=== PATIENT | male | born 1980 | race Caucasian/White ===

== ENCOUNTER 2020-12-16 10:06 | Day surgery (SDC) | payer OTHER, SELFPAY ==
[2020-12-11 09:09] VITALS: BMI 27.3
--- NOTE | 2020-12-15 10:57 | P.CONAN_ITS ---
Documented by User: Macy Sam NP 12/15/20 10:59 HPI - Anesthesia Eval Consult details Narrative: 40yo M for Upper Endoscopy Methadone daily Followed by [facility] transplant clinic Cirrhosis with varices s/p banding 2017 Last EGD with MAC 03/2019 [facility] Past Medical History Medical History Cirrhosis Esophageal varices Hepatitis Hypothyroid Upper GI bleed Surgical History Surgical History H/O colonoscopy History of esophagogastroduodenoscopy (EGD) Hx of hand surgery Hx of knee surgery Social History Social History Patient Tobacco Use Status: Current someday Tobacco user Advance Directives Information Provided: Yes (informational brochure mailed) Advance Directives on File: No Meds Allergies Allergy/AdvReac Type Severity Reaction Status Date / Time Penicillins Allergy Unknown Unknown Verified 12/10/20 10:45 Home Medications Medication Instructions Recorded Confirmed Last Taken Type cholecalciferol (vitamin D3) 10 10 mcg PO DAILY 12/11/20 12/11/20 Unknown History mcg (400 unit) capsule (Vitamin D3) clonazepam 1 mg tablet 1 mg PO BID 12/11/20 12/11/20 Unknown History clonidine HCl 0.2 mg tablet 0.2 mg PO BEDTIME 12/11/20 12/11/20 Unknown History lactulose 10 gram oral packet 10 g PO DAILY 12/11/20 12/11/20 Unknown History levothyroxine 100 mcg tablet 100 mcg PO DAILY 12/11/20 12/11/20 Unknown History methadone 10 mg/mL injection 58 mg IM DAILY 12/11/20 12/11/20 Unknown History solution nadolol 20 mg tablet 20 mg PO DAILY 12/11/20 12/11/20 Unknown History omeprazole 20 mg delayed 20 mg PO DAILY 12/11/20 12/11/20 Unknown History release,disintegrating tablet Exam Exam Date and Time: December 15, 2020 1057 Height,Weight and Vital Signs: Height 5 ft 7 in Weight 79.379 kg Assessment and Plan Assessment Anesthesia Assessment: Chart Reviewed Documented by User: Anne-Marie Barnes MD 12/16/20 11:08 HPI - Anesthesia Eval Consult details Narrative: 40yo M for Upper Endoscopy Methadone daily. H/o opioid abuse Followed by [facility] transplant clinic Cirrhosis with varices s/p banding 2017 Last EGD with MAC 03/2019 [facility] Active Problems Active Problems: Cirrhosis Pancytopenia. Plt 61 Past Medical History Medical History Cirrhosis Esophageal varices Hepatitis Hypothyroid Upper GI bleed Family History Family history of problems with anesthesia: No Surgical History Surgical History H/O colonoscopy History of esophagogastroduodenoscopy (EGD) Hx of hand surgery Hx of knee surgery History of Problems with Anesthesia: No Social History Social History Patient Tobacco Use Status: Current someday Tobacco user Advance Directives Information Provided: Yes (informational brochure mailed) Advance Directives on File: No Meds Allergies Allergy/AdvReac Type Severity Reaction Status Date / Time Penicillins Allergy Unknown Unknown Verified 12/10/20 10:45 Home Medications Medication Instructions Recorded Confirmed Last Taken Type cholecalciferol (vitamin D3) 10 10 mcg PO DAILY 12/11/20 12/11/20 Unknown History mcg (400 unit) capsule (Vitamin D3) clonazepam 1 mg tablet 1 mg PO BID 12/11/20 12/11/20 Unknown History clonidine HCl 0.2 mg tablet 0.2 mg PO BEDTIME 12/11/20 12/11/20 Unknown History lactulose 10 gram oral packet 10 g PO DAILY 12/11/20 12/11/20 Unknown History levothyroxine 100 mcg tablet 100 mcg PO DAILY 12/11/20 12/11/20 Unknown History methadone 10 mg/mL injection 58 mg IM DAILY 12/11/20 12/11/20 Unknown History solution nadolol 20 mg tablet 20 mg PO DAILY 12/11/20 12/11/20 Unknown History omeprazole 20 mg delayed 20 mg PO DAILY 12/11/20 12/11/20 Unknown History release,disintegrating tablet Exam Height,Weight and Vital Signs: Height 5 ft 7 in Weight 79.379 kg Vital Signs Temp Pulse Resp BP Pulse Ox 12/16/20 10:52 97.1 F 62 14 93/48 L 98 Pertinent Lab Results Pertinent Lab Results: Lab Results 12/15/20 12/15/20 Range/Units 12:54 12:54 WBC 3.5 L (4.8-10.8) X10*3/uL RBC 4.07 L (4.60-5.80) X10*6/uL Hgb 11.1 L (14.0-18.0) g/dl Hct 34.5 L (42-52) % MCV 84.8 (80-98) fL MCH 27.3 (27.0-33.0) pg MCHC 32.2 (31.0-36.0) g/dl RDW 15.1 (11.0-16.0) % Plt Count 61 L (160-400) X10*3/uL MPV 12.2 (9.4-12.4) fL Immature Gran % (Auto) 0.3 (0.0-0.4) % Neut % (Auto) 63.8 (45-73) % Lymph % (Auto) 23.4 (20-40) % [place] % (Auto) 10.7 (2-11) % Eos % (Auto) 1.2 (0-4) % Baso % (Auto) 0.6 (0-2) % Lymph # (Auto) 0.8 L (1.2-4.9) X10*3/uL [place] # (Auto) 0.4 (0.1-1.2) X10*3/uL Eos # (Auto) 0.0 (0.0-0.4) X10*3/uL Baso # (Auto) 0.0 (0.0-0.2) X10*3/uL Abs Immat Gran (auto) 0.01 (0.00-0.03) X10*3/uL Absolute Neuts (auto) 2.2 (2.0-8.3) X10*3/uL Absolute Nucleated RBC 0.000 (0.0-0.012) X10*3/uL Nucleated RBC % (auto) 0.0 (0.0-0.2) /100WBC PT 12.9 (9.9-13.0) SEC INR 1.1 (0.9-1.1) Airway Mallampati Class: IV (Barely any mouth opening) TM Dist: >3cm Neck ROM: Full Loose/Missing/Broken Teeth: Yes (Poor) Heart: RRR Lungs: CTAB Assessment and Plan Assessment Anesthesia Assessment: Anesthesia Plan Discussed Final Anesthetic Review Family History of Problems with Anesthesia: No History of Problems with Anesthesia: No NPO: Yes ASA Class: III Final Preanesthetic Review: No Changes in Pt Med Stat, Meds/Allgs Chart Reviewed, Consent Obtained/Reviewed and Anes Risks/Benef Reviewed Patient Risk: Intermediate Procedure Risk: Low Assessment/Block/Sedation in SS: Assess/Block/Sedation-SS Anesthetic Plan Anesthetic Plan: MAC: Disposition: Standard PACU
[2020-12-15 12:56] LABS: MANUAL DIFF FLAG NO
[2020-12-15 13:31] LABS: Basophils Percent Auto 0.6 % (0-2); Eosinophils Percent Auto 1.2 % (0-4); Hematocrit 34.5 % (42-52); Hemoglobin 11.1 g/dl (14.0-18.0); Imm Gran Abs Auto 0.01 X10*3/uL (0.00-0.03); Imm Gran Pct Auto 0.3 % (0.0-0.4); Lymphocytes Absolute Auto 0.8 X10*3/uL (1.2-4.9); Lymphocytes Percent Auto 23.4 % (20-40); Mean Corpuscular HGB Conc 32.2 g/dl (31.0-36.0); Mean Corpuscular Hemoglobin 27.3 pg (27.0-33.0); Mean Corpuscular Volume 84.8 fL (80-98); Mean Platelet Volume 12.2 fL (9.4-12.4); Monocytes Absolute Auto 0.4 X10*3/uL (0.1-1.2); Monocytes Percent Auto 10.7 % (2-11); Neutrophils Absolute Auto 2.2 X10*3/uL (2.0-8.3); Neutrophils Percent Auto 63.8 % (45-73); Platelet Count 61 X10*3/uL (160-400); Red Blood Count 4.07 X10*6/uL (4.60-5.80); Red Cell Distribution Width 15.1 % (11.0-16.0); White Blood Count 3.5 X10*3/uL (4.8-10.8)
[2020-12-15 13:59] LABS: INTERNATIONAL NORM RATIO 1.1 (0.9-1.1); Prothrombin Time 12.9 SEC (9.9-13.0)
[2020-12-16 10:52] VITALS: BP 93/48; PULSE 62; RESP 14; TEMP 36.2; O2SAT 98; BMI 26.6
[2020-12-16] MEDS: Lactated Ringers 1,000 ML 100 ML IVCONT (10:54)
--- NOTE | 2020-12-16 11:08 | MHC.SHP ---
Pre-Procedural Eval Section A Date of Service: 12/16/20 The patient is an INPATIENT: No Changes since office visit: No Cold of Flu in the past 2 weeks, No New Medical Problems, No Changes in Medication and No Patient answered all questions The History & Physical has been completed within 30 days and I have reviewed it.: Yes Section B Chief Complaint: esophageal varices Allergies: Allergies Allergy/AdvReac Type Severity Reaction Status Date / Time Penicillins Allergy Unknown Unknown Verified 12/10/20 10:45 Plan I have reviewed the history and physical and performed a pertinent physical examination on my patient. No changes have occurred unless specified.
[2020-12-16 11:26] VITALS: BP 95/59; PULSE 59; RESP 18; TEMP 36.2; O2SAT 98
--- NOTE | 2020-12-16 11:34 | PM.OP ---
Brief Operative Note Date of Service: 12/16/20 Pre-op diagnosis: esophageal varices Post-op diagnosis: same Procedure: egd Surgeon: Ochoa Tamez Anesthesia: MAC Was an Country Singer used for this Procedure?: No Estimated blood loss (mL): 0 Pathology: none sent Condition: stable Disposition: PACU
[2020-12-16 11:41] VITALS: BP 91/59; PULSE 60; RESP 18; O2SAT 96
[2020-12-16 11:56] VITALS: BP 90/57; PULSE 64; RESP 18; TEMP 36.2; O2SAT 95
--- NOTE | 2020-12-16 17:59 | OP_ITS ---
SURGEON: Ochoa Tamez MD INDICATIONS: Esophageal varices and cirrhosis. PREOPERATIVE DIAGNOSIS: POSTOPERATIVE DIAGNOSIS: PROCEDURE PERFORMED: Upper endoscopy. ESTIMATED BLOOD LOSS: COMPLICATIONS: ANESTHESIA: ASSISTANTS: SPECIMENS: MEDICATIONS: Monitored anesthesia care. DESCRIPTION OF PROCEDURE: History and physical performed. The risks and benefits of the procedure were explained to the patient. Informed consent was obtained. The patient was placed in the left lateral decubitus position. The Olympus video gastroscope was introduced into the esophagus, stomach, and duodenum. Examination was performed and the scope was removed. He tolerated the procedure well and was taken to recovery area in stable condition. FINDINGS: Esophagus: There were 2 chains of grade 1 esophageal varices extending from the EG junction at 35 cm to about 25 cm. There was no stigmata of recent hemorrhage. There was some scarring from previous banding in the distal esophagus. Stomach: The stomach showed no evidence of masses, ulcers, or polyps. No gastric varices were seen on retroflexed examination. There was mild portal hypertensive gastropathy. Duodenum: The bulb and second portion were normal. IMPRESSION: 1. Portal hypertensive gastropathy. 2. Esophageal varices. RECOMMENDATIONS: 1. Continued followup for variceal surveillance. 2. Continue present medical regimen including omeprazole and Nadolol. MD RIC Jauregui/NIGELL / [id number]
== END 2020-12-16 12:35 | disposition home or self-care (01) ==
PROVIDERS: PCP Internal Medicine; Visit Provider Internal Medicine Gastroenterology
PROC: 0DJ08ZZ Inspection of Upper Intestinal Tract, Via Natural or Artificial Opening Endoscopic (ICD-10-PCS; CPT 43235; principal; 2020-12-16 11:00)
DX: I85.00 Esophageal varices without bleeding (principal); K74.69 Other cirrhosis of liver; K76.6 Portal hypertension; K31.89 Other diseases of stomach and duodenum; Z86.19 Personal history of other infectious and parasitic diseases; Z79.899 Other long term (current) drug therapy; Z79.891 Long term (current) use of opiate analgesic; F17.210 Nicotine dependence, cigarettes, uncomplicated
CPT/HCPCS: 43235; 36415; 85025; 85610

== ENCOUNTER 2022-09-08 17:54 | Emergency (ER) | payer OTHER, SELFPAY ==
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
[2022-09-08 17:58] VITALS: BP 136/88; PULSE 82; O2SAT 98
[2022-09-08 19:04] VITALS: BP 148/80; PULSE 69; RESP 18; TEMP 36.4; O2SAT 100; BMI 25.0
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
[2022-09-08] MEDS: Morphine Sulfate Immed Release 15 MG TABLET PO (21:16)
--- OUTSIDE RECORDS SUMMARY | 2022-09-08 21:29 | XMS_ITS ---
Author Name Ochoa Tamez Jr Address [address] [place] [address] Organization [facility] Address [address] [place] [address] Care Team Providers Care Sales Service Executive Name Role Phone Dashawn Ayala Ochoa Unavailable [phone] PROBLEMS Type Condition ICD9-CM Code JDT43-WM Code Onset Dates Condition Status SNOMED Code Problem Chronic hepatitis C without hepatic coma B18.2 Active 646028878 Problem Esophageal varices without bleeding, unspecified esophageal varices type I85.00 Active 68475426 Problem Esophageal varices I85.00 Active Problem Iron deficiency anemia, unspecified iron deficiency anemia type D50.9 Active 16885538 Problem Other cirrhosis of liver K74.69 Active 27802828 Problem Secondary esophageal varices with bleeding I85.11 Active 525323091 Problem Rectal bleeding K62.5 Active 72078910 ALLERGIES No Known Allergies ENCOUNTERS Encounter Location Date Diagnosis [facility] [address], [place] [phone] Nov, Esophageal varices I85.00 [facility] [address] [place] [address] Nov, [facility] [address] [place] [address] Nov, [facility] [address] [place] [address] Oct, Other cirrhosis of liver K74.69 [facility] [address] [place] [address] Oct, Esophageal varices without bleeding, unspecified esophageal varices type I85.00 and Other cirrhosis of liver K74.69 [facility] [address] [place] [address] May, [facility] [place] [address] [place] [id number] Mar, Esophageal varices I85.00 [facility] [address] [place] [address] Feb, [facility] [address] [place] [address] Feb, [facility] [address] [place] [address] Dec, Other cirrhosis of liver K74.69 and Esophageal varices without bleeding, unspecified esophageal varices type I85.00 [facility] [address] [place] [address] Sep, [facility] [address] [place] [address] Sep, [facility] [address] [place] [address] Mar, Rectal bleeding K62.5 [facility] [address] [place] [address] Feb, [facility] [address] [place] [id number] Oct, [facility] [address] [facility] [address] Sep, [facility] [address] [place] [id number] Sep, [facility] [address] [facility] [address] Jul, Other cirrhosis of liver K74.69 and Secondary esophageal varices with bleeding I85.11 [facility] [address] [place] [id number] Jul, [facility] [address] [place] [address] [place] [address] May, [facility] [address] [place] [id number] May, [facility] [address] [place] [address] Apr, [facility] [address] [place] [address] Apr, Secondary esophageal varices with bleeding I85.11 [facility] [address] [place] [address] Jan, Chronic hepatitis C without hepatic coma B18.2 and Iron deficiency anemia, unspecified iron deficiency anemia type D50.9 [facility] [address] [place] [address] Nov, [facility] [address] [place] [address] Sep, [facility] [address] [place] [address] Sep, [facility] [address] [place] [address] Jul, [facility] [address] [place] [address] Jul, Chronic hepatitis C without hepatic coma B18.2 [facility] [address] [place] [address] Jul, [facility] [address] [place] [address] Jul, [facility] [address] [place] [address] Jul, [facility] [address] [place] [address] Jul, Iron deficiency anemia, unspecified iron deficiency anemia type D50.9 and Chronic hepatitis C without hepatic coma B18.2 [facility] [address] [place] [id number] Apr, [facility] [address] [place] [address] Mar, Chronic viral hepatitis C B18.2 [facility] [address] [place] [address] Mar, [facility] [address] [place] [address] Mar, Iron deficiency anemia, unspecified iron deficiency anemia type D50.9 and Chronic hepatitis C without hepatic coma B18.2 [facility] [address] [place] [address] Mar, [facility] [address] [place] [address] Oct, Hepatitis C 070.70 [facility] [address] [place] [address] Aug, [facility] ER [address], [place] [phone] Nov, [facility] ER [address], [place] [phone] Jul, IMMUNIZATIONS Vaccine Route Administration Date Status Influenza Unknown Nov 11, 2020 Administered Influenza Unknown Nov 28, 2018 Administered SOCIAL HISTORY Qualifiers Date Current Smoker REASON FOR REFERRAL FUNCTIONAL STATUS PLAN OF CARE Activity Details VITAL SIGNS Weight 175 lbs 2020-11-24 Weight 201 lbs 2019-01-12 Weight 203 lbs 2017-08-05 Weight 215 lbs 2017-05-20 Weight 208 lbs 2017-01-28 Weight 220 lbs 2016-07-30 Weight 205 lbs 2016-03-31 Weight 179 lbs 2013-11-23 Height 67 in 2020-11-24 Height 67 in 2019-01-12 Height 67 in 2017-08-05 Height 67 in 2017-05-20 Height 67 in 2017-01-28 Height 67 in 2016-07-30 Height 67 in 2016-03-31 Height 67 in 2013-11-23 BMI 27.41 kg/m2 2020-11-24 BMI 31.48 kg/m2 2019-01-12 BMI 31.79 kg/m2 2017-08-05 BMI 33.67 kg/m2 2017-05-20 BMI 32.57 kg/m2 2017-01-28 BMI 34.45 kg/m2 2016-07-30 BMI 32.10 kg/m2 2016-03-31 BMI 28.03 kg/m2 2013-11-23 Heart Rate 64 /min 2017-01-28 Heart Rate 84 /min 2013-11-23 Temperature 97.3 degrees Fahrenheit Blood pressure systolic 000 mm Hg Blood pressure diastolic 00 mm Hg 2020-10 MEDICATIONS Medication Instructions Dosage Frequency Start Date End Date Duration Status Tylenol 325 MG Orally every 4 hrs/prn 1 tablet as needed Active Vitamin D2 10 MCG (400 UNIT) Orally once a week 1 tablet Active Polyethylene Glycol 3350 - Oral prn take 1 packet by mouth once daily Active cloNIDine HCl 0.2 MG Orally Once a day 1 tablet 24h 30 day(s) Active Nadolol 20 MG TAKE 1 TABLET BY MOUTH EVERY DAY 90 Active Methadone HCl 10 MG/ML Orally Once a day 58 ml as needed 24h Active Omeprazole 20 MG TAKE 1 CAPSULE BY MOUTH EVERY DAY 90 Active SUMAtriptan Succinate 100 MG Orally prn 1 dose at onset of headache in each nostril may repeat dose one time after 2 hours as needed Active LORazepam 2 MG Orally daily 1/2 in the am and 1 tablet in the pm 24h Active clonazePAM 1 MG Orally twice a day 1 tablet 12h Active Lactulose 10 GM Orally Once a day 1 packet 24h 30 day(s) Active Levothyroxine Sodium 100 MCG Orally Once a day 1 tablet in the morning on an empty stomach 24h Active PROCEDURES Procedure Date Ordered Result Body Site DOC MEDS VERIFIED W/PT OR RE Nov 24, 2020 [facility] GI ENDOSCOPY, DIAGNOSIS Dec 16, 2020 UPPR GI ENDOSCOPY, DIAGNOSIS Apr 06, 2019 DOC RSN FOR NOT SCREEN/REC F/U HBP Nov 24, 2020 Pt scrn tbco id as non user Nov 24, 2020 RESULTS Name Result Date Reference Range Complete Blood Count Auto Diff 2020-12-15 White Blood Count 3.5 4.8-10.8 Red Blood Count 4.07 4.60-5.80 Hemoglobin 11.1 14.0-18.0 Hematocrit 34.5 42-52 Mean Corpuscular Volume 84.8 80-9 8 Mean Corpuscular Hemoglobin 27.3 27.0-33.0 Mean Corpuscular HGB Conc 32.2 31 .0-36.0 Red Cell Distribution Width 15.1 11.0-16.0 Platelet Count 61 160-400 Mean Platelet Volume 12.2 9.4-12. 4 Neutrophils Percent Auto 63.8 45- 73 Imm Gran Pct Auto 0.3 0.0-0.4 Lymphocytes Percent Auto 23.4 20- 40 Monocytes Percent Auto 10.7 2-11 Eosinophils Percent Auto 1.2 0-4 Basophils Percent Auto 0.6 0-2 NRBC Pct Auto 0.0 0.0-0.2 Neutrophils Absolute Auto 2.2 2. 0-8.3 Imm Gran Abs Auto 0.01 0.00-0.03 Lymphocytes Absolute Auto 0.8 1. 2-4.9 Monocytes Absolute Auto 0.4 0.1- 1.2 Eosinophils Absolute Auto 0.0 0. 0-0.4 Basophils Absolute Auto 0.0 0.0- 0.2 NRBC Abs Auto 0.000 0.0-0.012 Prothrombin Time INR 2020-12-15 Prothrombin Time 12.9 9.9-13.0 INTERNATIONAL NORM RATIO 1.1 0.9 -1.1 CBC w/o DIFF 2019-04-06 WBC 4.3 4.8-10.8 RBC 4.36 4.60-5.80 HEMOGLOBIN 14.1 14.0-18.0 HEMATOCRIT 41.2 42-52 MCV 94.5 80-98 MCH 32.2 27.0-33.0 MCHC 34.1 31.0-36.0 PLATELET COUNT 60 160-400 RDW 13.2 11.0-16.0 CBC w DIFF 2018-05-09 WBC 4.6 4.8-10.8 ABSOLUTE NEUTROPHIL COUNT 2.2 2. 2-7.9 RBC 4.15 4.60-5.80 HEMOGLOBIN 12.4 14.0-18.0 HEMATOCRIT 37.0 42-52 MCV 89.1 80-98 MCH 30.0 27.0-33.0 MCHC 33.7 31.0-36.0 PLATELET COUNT 61 160-400 RDW 14.8 11.0-16.0 NEUTROPHILS 48.5 45-73 LYMPHOCYTES 36.6 20-40 MONOCYTES 11.6 2-11 EOSINOPHILS 1.9 0-4 BASOPHILS 1.4 0-2 CBC w/o DIFF 2017-09-27 WBC 4.4 4.8-10.8 RBC 4.24 4.60-5.80 HEMOGLOBIN 13.2 14.0-18.0 HEMATOCRIT 38.1 42-52 MCV 89.8 80-98 MCH 31.1 27.0-33.0 MCHC 34.7 31.0-36.0 PLATELET COUNT 78 160-400 RDW 14.0 11.0-16.0 LIVER PROFILE 2017-08-05 PROTEIN, TOTAL 7.4 6.5-8.0 ALBUMIN 3.9 3.5-5.0 BILIRUBIN, TOTAL 0.7 0.0-1.0 BILIRUBIN, DIRECT 0.3 0.0-0.5 ALK. PHOS. 155 39-117 GOT 41 5-37 GPT 13 0-40 IRON + IBC (FE) 2017-08-05 IRON 117 45-160 IBC 348 228-428 % SATURATION 34 20-50 FERRITIN 2017-08-05 FERRITIN 29 20-250 CBC w/o DIFF 2017-08-05 WBC 5.8 4.8-10.8 RBC 4.45 4.60-5.80 HEMOGLOBIN 13.7 14.0-18.0 HEMATOCRIT 38.9 42-52 MCV 87.6 80-98 MCH 30.8 27.0-33.0 MCHC 35.2 31.0-36.0 PLATELET COUNT 64 160-400 RDW 15.9 11.0-16.0 PROTHROMBIN TIME (PT, INR) 2017-08-05 INTERNATIONAL NORM. RATIO 1.1 SE E NOTE PROTHROMBIN TIME 13.0 10.2-12.9 LIVER PROFILE 2016-10-12 PROTEIN, TOTAL 7.6 6.5-8.0 ALBUMIN 3.8 3.5-5.0 BILIRUBIN, TOTAL 0.7 0.0-1.0 BILIRUBIN, DIRECT 1.1 0.0-0.5 ALK. PHOS. 126 39-117 GOT 54 5-37 GPT 16 0-40 CBC w/o DIFF 2016-10-12 WBC 6.0 4.8-10.8 RBC 4.32 4.60-5.80 HEMOGLOBIN 11.3 14.0-18.0 HEMATOCRIT 35.3 42-52 MCV 81.7 80-98 MCH 26.2 27.0-33.0 MCHC 32.0 31.0-36.0 PLATELET COUNT 80 160-400 RDW 20.5 11.0-16.0 HEPATITIS C VIRAL LOAD 2016-10-12 HEP C VIRAL LOAD <15 <15 HCV LOG PCR <1.18 <1.18 LIVER PROFILE 2016-08-30 PROTEIN, TOTAL 7.6 6.5-8.0 ALBUMIN 3.7 3.5-5.0 BILIRUBIN, TOTAL 0.9 0.0-1.0 BILIRUBIN, DIRECT 0.5 0.0-0.5 ALK. PHOS. 136 39-117 GOT 47 5-37 GPT 17 0-40 CBC w DIFF 2016-08-30 WBC 4.2 4.8-10.8 ABSOLUTE NEUTROPHIL COUNT 2.4 2. 2-7.9 RBC 4.31 4.60-5.80 HEMOGLOBIN 10.7 14.0-18.0 HEMATOCRIT 34.9 42-52 MCV 81.0 80-98 MCH 24.7 27.0-33.0 MCHC 30.5 31.0-36.0 PLATELET COUNT 75 160-400 RDW 16.5 11.0-16.0 NEUTROPHILS 57.2 45-73 LYMPHOCYTES 30.6 20-40 MONOCYTES 10.0 2-11 EOSINOPHILS 0.8 0-4 BASOPHILS 1.3 0-2 HEPATITIS C VIRAL LOAD 2016-08-30 HEP C VIRAL LOAD <15 <15 HCV LOG PCR <1.18 <1.18 ABD RETRO VICS DOPPLER 2016-08-17 GI BIOPSY 2016-05-21 G.I. BIOPSY CBC w/o DIFF 2016-05-21 WBC 6.6 4.8-10.8 RBC 4.46 4.60-5.80 HEMOGLOBIN 12.7 14.0-18.0 HEMATOCRIT 39.4 42-52 MCV 88.4 80-98 MCH 28.4 27.0-33.0 MCHC 32.2 31.0-36.0 PLATELET COUNT 90 160-400 RDW 15.5 11.0-16.0 LIVER PROFILE 2016-03-31 PROTEIN, TOTAL 7.6 6.5-8.0 ALBUMIN 4.1 3.5-5.0 BILIRUBIN, TOTAL 0.5 0.0-1.0 BILIRUBIN, DIRECT 0.3 0.0-0.5 ALK. PHOS. 148 39-117 GOT 129 5-37 GPT 74 0-40 CBC w DIFF 2016-03-31 WBC 4.3 4.8-10.8 ABSOLUTE NEUTROPHIL COUNT 2.5 2. 2-7.9 RBC 4.61 4.60-5.80 HEMOGLOBIN 12.9 14.0-18.0 HEMATOCRIT 39.1 42-52 MCV 84.8 80-98 MCH 28.0 27.0-33.0 MCHC 33.1 31.0-36.0 PLATELET COUNT 85 160-400 RDW 16.1 11.0-16.0 NEUTROPHILS 56.8 45-73 LYMPHOCYTES 28.3 20-40 MONOCYTES 12.1 2-11 EOSINOPHILS 1.1 0-4 BASOPHILS 1.8 0-2 PROTHROMBIN TIME (PT, INR) 2016-03-31 INTERNATIONAL NORM. RATIO 1.1 SE E NOTE PROTHROMBIN TIME 13.0 10.1-13.8 HEPATITIS C VIRAL LOAD 2016-03-31 HEP C VIRAL LOAD 51979 <15 HCV LOG PCR 4.65 <1.18 HCV LIVER FIBROSIS, FIBRO TEST 2016-03-31 FIBROSIS SCORE 0.56 () FIBROSIS STAGE F2 () FIBROSIS INTERPRETATION SEE NOTE () NECROINFLAMMAT ACTIVITY SCORE 0.46 () NECROINFLAMMAT ACTIVITY GRADE A1-A2 () NECROINFLAMMAT ACTIVITY INTERP SEE NOTE () RAGTY-0-[id number] 326 106-279 HAPTOGLOBIN 63 43-212 APOLIPOPROTEIN A1 117 94-176 TOTAL BILIRUBIN 0.4 0.2-1.2 GGT 75 3-90 ALT 61 9-46 REFERENCE ID [id number] () FOOTNOTE SEE NOTE () REASON FOR VISIT esophageal varices, Needs note to Methadone clinic, r/f request omeprazole, labs, Patient presents today for an upperendoscopy screening, r/f , esophageal varices, needs note, void, hepatitis C, cirrhosis, esophageal varices, Rx request, refill/Omeprazole, Needs refill, 6 month f/u, Looking for refill , iron def anemia, esophageal varices, upper endoscopy, esophageal varices, PATIENT PRESENTS TODAY FOR 6 month f/u Hep C, esophageal varices with bleeding, EGD with banding, esophageal varices, Needs letter, Patient presents today for a HFU, PATIENT PRESENTS TODAY FOR Hep C, Medication letter, Hep C, r/s, SVR form, Nadolol, iron def anemia, hepatitis C, Hep C, Hep C inquiry, Put on one year OV follow up, PATIENT PRESENTS TODAY FOR iron def anemia, hepatitis C, iron deficiency anemia, Marylu Mortensen, patient presents today for HEP C, 6 month f/u, Needed to cancel OV follow up,Hep C, Hep C, needed to reschedule Insurance Providers Health Insurance Type Health Plan Insurance Address Health Plan Insurance Phone Health Plan Insurance Name Health Plan Coverage Dates Member ID Patient Relationship to Subscriber Patient Address Patient Phone Patient Name Patient Date of Subscriber ID Subscriber Name Subscriber Date of Group No Exchange Group [facility] [address] [address] [facility] [id number] Exchange Group [facility] self ROSEY PRECIADO [id number] [facility] [address] [address] [facility] [id number] [facility] self ROSEY PRECIADO [id number]
[2022-09-08 23:02] VITALS: BP 116/79; PULSE 61; RESP 16; O2SAT 99
[2022-09-09] VITALS: BP 121/74; PULSE 61; RESP 16; TEMP 36.4; O2SAT 100
== END 2022-09-09 00:55 | disposition home or self-care (01) ==
PROVIDERS: Emergency Provider Emergency Medicine Emergency Medical Services
DX: S02.2XXA Fracture of nasal bones, initial encounter for closed fracture (principal); S00.83XA Contusion of other part of head, initial encounter; Y04.2XXA Assault by strike against or bumped into by another person, initial encounter; J01.00 Acute maxillary sinusitis, unspecified; Y93.89 Activity, other specified; Y92.511 Restaurant or cafe as the place of occurrence of the external cause; Y99.9 Unspecified external cause status; Z79.899 Other long term (current) drug therapy
CPT/HCPCS: 70150; 70450; 70486; 72125; 99284

== ENCOUNTER 2022-09-20 12:35 | Outpatient (REF) | payer OTHER, SELFPAY ==
[2022-09-20 13:10] LABS: Ammonia 61 umol/L (13-55)
[2022-09-20 13:52] LABS: Alanine Aminotransferase 36 U/L (0-40); Albumin Level 3.4 g/dL (3.5-5.0); Alkaline Phosphatase 91 U/L (39-117); Anion Gap 10 (12-20); Aspartate Amino Transferase 87 U/L (5-37); Bilirubin Direct 0.5 mg/dL (0.0-0.5); Blood Urea Nitrogen 11 mg/dL (9-16); Calcium 9.2 mg/dL (8.4-10.2); Carbon Dioxide 34 mmol/L (22-29); Chloride 99 mmol/L (96-108); Estimated Glomerular Filt Rate > 60; Glucose Random 118 mg/dL (60-115); Potassium 2.7 mmol/L (3.3-5.1); Sodium 140 mmol/L (135-145); Total Protein 6.3 g/dL (6.5-8.0)
[2022-09-20 14:18] LABS: Folate 7.2 ng/mL (> or = 4.0); Vitamin B12 1267 pg/mL (200-900)
[2022-09-21 06:00] LABS: HIV Num 1 1.06 S/CO (0.00-0.99)
[2022-09-21 09:09] LABS: HIV AB/AG Nonreactive (Nonreactive); HIV Num 2 0.08 S/CO; HIV Num 3 0.08 S/CO
[2022-09-21 21:28] LABS: Lyme Abs Screen <0.90 index
== END 2022-09-20 12:36 | disposition home or self-care (01) ==
LOC: HO.CT 12:35
PROVIDERS: Absent Provider Psychiatry & Neurology Neurology; Visit Provider Internal Medicine
DX: G93.40 Encephalopathy, unspecified (principal); K74.69 Other cirrhosis of liver; B18.2 Chronic viral hepatitis C
CPT/HCPCS: 36415; 80048; 80076; 82140; 82607; 82746; 86617; 86618; 87389

== ENCOUNTER 2022-10-12 09:10 | Outpatient (REF) | payer OTHER, SELFPAY ==
--- NOTE | ~2022-10-12 | CT_ITS ---
EXAMINATION: CT ABDOMEN AND PELVIS WITHOUT AND WITH CONTRAST CLINICAL INFORMATION: Liver cancer COMPARISON: Previous abdominal ultrasound April 2006 TECHNIQUE: Multidetector volumetric imaging was performed of the abdomen and pelvis before and after the IV administration of 85 mL of Omnipaque 300 intravenous contrast. Arterial and portal phase imaging of the liver was performed. Sagittal and coronal reformatted images were obtained on the technologist's workstation. This CT examination was performed using dose optimization techniques as appropriate, variously including the following: *Automated exposure control *Adjustment of mA and/or kV according to patient size (this includes techniques or standardized protocols for targeted exams where dose is matched to indication/reason for exam; i.e. extremities or head) *Use of iterative reconstruction technique DLP: 1007 mGy-cm FINDINGS: LUNG BASES: 5 mm nodular density in the medial segment of the right middle lobe, question representing atelectasis. The lung bases are otherwise clear. There is mild bilateral gynecomastia. LIVER, GALLBLADDER, AND BILIARY TREE: The liver is cirrhotic appearing. There is a 6 mm low-attenuation observation in the posterior segment of the right lobe of the liver. This is best appreciated axial image 33 series 5 on venous phase imaging. This cannot be a faint may be faintly appreciated on arterial phase imaging axial image 37 series 4. This is not appreciated on precontrast imaging. No other focal lesion is seen. This is difficult to characterize. There is trace history of liver cancer, this could represent a treated lesion. Correlation with clinical history recommended. No suspicious lesion with early arterial phase enhancement, rapid washout or pseudocapsule formation is seen. The gallbladder is normal. There is no biliary duct dilatation. PANCREAS: Unremarkable SPLEEN: The spleen is enlarged and measures 15 cm in length. ADRENAL GLANDS: Unremarkable KIDNEYS AND URETERS: The kidneys are normal in size, shape, and attenuation. No hydronephrosis, hydroureter, or calculi seen. No perinephric stranding. BLADDER: Not optimally distended but appears unremarkable. GASTROINTESTINAL TRACT: Mild wall thickening of the sigmoid colon and rectum questionable for proctoscopy colitis. Stool throughout the colon suggestive of constipation. This may represent stercoral colitis related to chronic constipation. Small and large bowel is otherwise normal. The appendix is normal. The stomach is underdistended and not well evaluated. ABDOMINAL WALL: No significant hernia is appreciated. LYMPH NODES: Diffuse shotty retroperitoneal, peripancreatic and periportal lymphadenopathy. No enlarged lymph nodes. No ascites. VASCULAR: Unremarkable PELVIC VISCERA: Unremarkable OSSEOUS STRUCTURES: Mild degenerative changes at the hip joints. CT/CT abdomen pelvis wo/w IV con IMPRESSION: Cirrhotic-appearing liver. 6 mm lesion/observation in the right lobe of the liver. This is difficult to characterize. Correlation with patient's clinical history and six-month imaging follow-up recommended. No suspicious liver lesion seen. Enlarged spleen. Constipation and question mild stercoral colitis of the distal colon. Fleischner guidelines were followed.
[2022-10-12] MEDS: iohexoL 350 MG/ML 100 ML INFUS..BTL IV (10:15)
== END 2022-10-12 09:11 | disposition home or self-care (01) ==
LOC: HO.CT 09:10
PROVIDERS: Visit Provider Internal Medicine
DX: K74.69 Other cirrhosis of liver (principal)
CPT/HCPCS: 74178; Q9967

== ENCOUNTER 2023-03-01 09:44 | Day surgery (SDC) | payer OTHER, SELFPAY ==
[2023-02-24 10:18] VITALS: BMI 22.6
[2023-03-01 10:11] VITALS: BMI 22.7
[2023-03-01 10:26] VITALS: BP 138/87; PULSE 70; RESP 16; TEMP 36.8; O2SAT 98
[2023-03-01 10:35] LABS: Hematocrit 37.4 % (42.0-52.0); Hemoglobin 12.2 g/dl (14.0-18.0); Mean Corpuscular HGB Conc 32.6 g/dl (31.0-36.0); Mean Corpuscular Hemoglobin 27.5 pg (27.0-33.0); Mean Corpuscular Volume 84.2 fL (80.0-98.0); Mean Platelet Volume 10.6 fL (9.4-12.4); Platelet Count 65 X10*3/uL (160-400); Red Blood Count 4.44 X10*6/uL (4.60-5.80); Red Cell Distribution Width 17.6 % (11.0-16.0); White Blood Count 3.8 X10*3/uL (4.8-10.8)
[2023-03-01 10:39] LABS: Prothrombin Time 12.6 SEC (11.1-13.3)
--- NOTE | 2023-03-01 10:40 | P.CONAN_ITS ---
HPI - Anesthesia Eval Consult details Narrative: upper endo for varices , due to liver failure from hep c, pt on methadone for prior drug use, tok 48 mg today PMFSH Past Medical History Medical History Chronic hepatitis Hypothyroid Upper GI bleed Hepatitis Esophageal varices Cirrhosis Family History Family history of problems with anesthesia: No Surgical History Surgical History H/O colonoscopy Hx of knee surgery Hx of hand surgery History of esophagogastroduodenoscopy (EGD) History of Problems with Anesthesia: No Social History Social History Patient Tobacco Use Status: Former Tobacco user Tobacco use type: Cigarette Use of substances other than those prescribed or required for medical reasons: Yes Are you DNR?: No Advance Directives: No Advance Directives Information Provided: Yes How much weight loss: 34pounds or more Meds Allergies Allergy/AdvReac Type Severity Reaction Status Date / Time No Known Allergies Allergy Verified 09/08/22 19:17 Active Medications: Current Medications Lactated Ringer's (Lr) 1,000 mls @ 100 mls/hr IVCONT .Q10H [facility] Home Medications Medication Instructions Recorded Confirmed Last Taken Type cholecalciferol (vitamin D3) 10 10 mcg PO DAILY 12/11/20 02/24/23 Unknown Histor y mcg (400 unit) capsule (Vitamin D3) clonazepam 1 mg tablet 1 mg PO BID 12/11/20 02/24/23 Unknown History clonidine HCl 0.2 mg tablet 0.2 mg PO BEDTIME 12/11/20 09/08/22 Unknown History lactulose 10 gram oral packet 10 g PO DAILY 12/11/20 02/24/23 Unknown History levothyroxine 100 mcg tablet 100 mcg PO DAILY 12/11/20 02/24/23 03/01/23 History methadone 10 mg/mL injection 58 mg IM DAILY 12/11/20 02/24/23 03/01/23 History solution nadolol 20 mg tablet 20 mg PO DAILY 12/11/20 02/24/23 Unknown History omeprazole 20 mg delayed 20 mg PO DAILY 12/11/20 09/08/22 Unknown History release,disintegrating tablet fluoxetine 20 mg capsule 40 mg PO QAM 09/08/22 02/24/23 Unknown History ferrous sulfate 325 mg (65 mg 325 mg PO DAILY 02/24/23 02/24/23 Unknown History iron) tablet furosemide 20 mg tablet 20 mg PO DAILY 02/24/23 02/24/23 Unknown History potassium chloride 20 mEq oral 20 meq PO DAILY 02/24/23 02/24/23 Unknown History packet Exam Height,Weight and Vital Signs: Height 5 ft 7 in Weight 65.828 kg Last Vital Signs Temp 98.2 F 03/01/23 10:26 Pulse 70 03/01/23 10:26 Resp 16 03/01/23 10:26 BP 138/87 03/01/23 10:26 Pulse Ox 98 03/01/23 10:26 O2 Del Method Room Air 03/01/23 10:26 Pertinent Lab Results Pertinent Lab Results: Laboratory Tests 03/01/23 10:27 WBC 3.8 L RBC 4.44 L Hgb 12.2 L Hct 37.4 L MCV 84.2 MCH 27.5 MCHC 32.6 RDW 17.6 H Plt Count 65 L MPV 10.6 Absolute Nucleated RBC 0.000 Nucleated RBC % (auto) 0.0 PT 12.6 INR 1.0 Airway Mallampati Class: II TM Dist: >3cm Neck ROM: Full Denture: Upper and Lower Heart: rrr Lungs: cta Assessment and Plan Assessment Anesthesia Assessment: Anesthesia Plan Discussed Final Anesthetic Review Family History of Problems with Anesthesia: No History of Problems with Anesthesia: No NPO: Yes ASA Class: IV (waiting on liver transplant) Final Preanesthetic Review: No Changes in Pt Med Stat, Meds/Allgs Chart Reviewed, Consent Obtained/Reviewed and Anes Risks/Benef Reviewed Patient Risk: Intermediate Procedure Risk: Intermediate Anesthetic Plan Anesthetic Plan: MAC: Disposition: Standard PACU
--- NOTE | 2023-03-01 10:44 | MHC.SHP ---
Pre-Procedural Eval Section A Date of Service: 03/01/23 The patient is an INPATIENT: No Changes since office visit: No Cold of Flu in the past 2 weeks, No New Medical Problems, No Changes in Medication and No Patient answered all questions The History & Physical has been completed within 30 days and I have reviewed it.: Yes Section B Chief Complaint: Esophageal varices without bleeding,cirrhosis Allergies: Allergies Allergy/AdvReac Type Severity Reaction Status Date / Time No Known Allergies Allergy Verified 09/08/22 19:17 Plan I have reviewed the history and physical and performed a pertinent physical examination on my patient. No changes have occurred unless specified. Time Spent With Patient Time: Total time managing care of this patient today ____ minutes.
[2023-03-01 11:05] VITALS: BP 106/55; PULSE 62; RESP 18; TEMP 36.6; O2SAT 99
[2023-03-01 11:20] VITALS: BP 115/61; PULSE 61; RESP 18; TEMP 36.3; O2SAT 95
--- NOTE | 2023-03-01 12:16 | OP_ITS ---
DATE OF SERVICE: 03/01/2023 SURGEON: Ochoa Tamez MD INDICATIONS: Esophageal varices and cirrhosis. PREOPERATIVE DIAGNOSIS: POSTOPERATIVE DIAGNOSIS: PROCEDURE PERFORMED: Upper endoscopy. ESTIMATED BLOOD LOSS: COMPLICATIONS: ANESTHESIA: Monitored anesthesia care. ASSISTANTS: SPECIMENS: DESCRIPTION OF PROCEDURE: A history and physical was performed. The risks and benefits of the procedure were explained to the patient. Informed consent was obtained. The patient was placed in the left lateral decubitus position. The Olympus video gastroscope was introduced into the esophagus, stomach, and duodenum. Examination was performed. The scope was removed. He tolerated the procedure well and was returned to the recovery area in stable condition. FINDINGS: Esophagus: There were 2 chains of grade 1 esophageal varices extending from the EG junction at 35 cm to approximately 25 cm. There were no stigmata of recent hemorrhage. There was some scarring in the distal esophagus from previous banding. Stomach: Stomach showed mild changes of portal hypertensive gastropathy. No bleeding was identified. Retroflexed examination showed no gastric varices. The mucosa was otherwise normal. Duodenum: The bulb and 2nd portion were normal. IMPRESSION: 1. Esophageal varices. 2. Portal hypertensive gastropathy. RECOMMENDATION: 1. Continue present medical regimen. 2. Repeat variceal surveillance in 12 to 24 months. MD RIC Jauregui/LAURIE / [phone]
== END 2023-03-01 11:49 | disposition home or self-care (01) ==
PROVIDERS: Nurse Practitioner; PCP Internal Medicine; Visit Provider Internal Medicine Gastroenterology
PROC: 0DJ08ZZ Inspection of Upper Intestinal Tract, Via Natural or Artificial Opening Endoscopic (ICD-10-PCS; CPT 43235; principal; 2023-03-01 10:00)
DX: I85.00 Esophageal varices without bleeding (principal); K31.89 Other diseases of stomach and duodenum; K76.6 Portal hypertension; K74.60 Unspecified cirrhosis of liver; B18.2 Chronic viral hepatitis C; E03.9 Hypothyroidism, unspecified; Z79.899 Other long term (current) drug therapy; F11.20 Opioid dependence, uncomplicated; Z98.890 Other specified postprocedural states; Z87.891 Personal history of nicotine dependence
CPT/HCPCS: 43235; 36415; 85027; 85610; J2704

== ENCOUNTER 2023-04-12 10:37 | Outpatient (REF) | payer OTHER, SELFPAY ==
--- NOTE | ~2023-04-12 | CT_ITS ---
EXAMINATION: CT ABDOMEN WITH CONTRAST CLINICAL INFORMATION: Liver mass. COMPARISON: 10/12/2022 TECHNIQUE: Contiguous axial thin section helical images of the abdomen were performed following the administration of 85 mL of Omnipaque 350 intravenous contrast. The data set was reformatted in the coronal and sagittal planes and reviewed on an independent workstation. This CT examination was performed using dose optimization techniques as appropriate, variously including the following: *Automated exposure control *Adjustment of mA and/or kV according to patient size (this includes techniques or standardized protocols for targeted exams where dose is matched to indication/reason for exam; i.e. extremities or head) *Use of iterative reconstruction technique DLP: 153 mGy-cm FINDINGS: LUNG BASES: No pleural or pericardial effusion. LIVER, GALLBLADDER, AND BILIARY TREE: The liver is diffusely decreased in attenuation with nodular surface contour. 1.1 x 0.7 cm hypodensity in the posterior right hepatic lobe, previously 1.0 x 0.7 cm. No biliary ductal dilatation. The gallbladder is unremarkable. PANCREAS: Normal contour. No ductal dilatation. SPLEEN: Enlarged. ADRENAL GLANDS AND KIDNEYS: No adrenal mass. Kidneys are symmetric in size and enhancement. No hydronephrosis or perinephric fluid collection. BOWEL LOOPS: Gastric wall thickening suspected portal gastropathy. Imaged loops of small and large bowel are not obstructed. LYMPH NODES: Enlarged gastrohepatic ligament lymph nodes. Subcentimeter mesenteric and retroperitoneal lymph nodes. VASCULAR: Normal caliber abdominal aorta. Hepatic vasculature is patent.. BONES: No destructive bone lesions. CT/CT abdomen w IV con IMPRESSION: Possible slight interval increase in size of 1.1 x 0.9 cm lesion in the posterior right hepatic lobe. Evaluation is limited by lack of multiphasic imaging. MRI abdomen should be considered for further and more sensitive characterization. Enlarged gastrohepatic ligament lymph nodes. Numerous subcentimeter retroperitoneal and mesenteric lymph nodes. These appear unchanged and are possibly on a reactive basis.
[2023-04-12] MEDS: iohexoL 350 MG/ML 100 ML INFUS..BTL IV (11:22)
[2023-04-13 08:33] LABS: Creatinine POC 0.5 mg/dL (0.5-1.4); GFR POC > 60
== END 2023-04-12 10:38 | disposition home or self-care (01) ==
LOC: HO.CT 10:37
PROVIDERS: PCP Internal Medicine; Visit Provider Internal Medicine
DX: K74.69 Other cirrhosis of liver (principal)
CPT/HCPCS: 74160; 82565; Q9967

== ENCOUNTER 2023-07-12 11:11 | Outpatient (REF) | payer OTHER, SELFPAY ==
--- NOTE | ~2023-07-12 | MR_ITS ---
EXAMINATION: MR ABDOMEN WITHOUT AND WITH CONTRAST CLINICAL INFORMATION: Liver lesion. COMPARISON: CT abdomen 04/12/2023 TECHNIQUE: MR abdomen was performed without and with use of 6 mL intravenous Gadavist gadolinium contrast. Postcontrast images are performed in multiphase dynamic sequences. Imaging was performed in 3 planes. FINDINGS: Motion artifact technically degrades image quality. LUNG BASES: No pleural or pericardial effusion. LIVER, GALLBLADDER, AND BILIARY TREE: Cirrhotic morphology of the liver. Stable 1.1 cm posterior right hepatic T2 hyperintense T1 hypointense lesion. Postcontrast enhancement is difficult to assess due to motion degradation. Possible mild enhancement is questioned based on GREGORIA calculations. No foci of arterial phase hyperenhancement or washout characteristics. No biliary ductal dilatation is present. The gallbladder is unremarkable with no evidence of gallbladder wall thickening, or obvious pericholecystic inflammatory changes. PANCREAS: No ductal dilatation. SPLEEN: Enlarged. Measures 16.6 cm in AP dimension. ADRENAL GLANDS: No adrenal mass. KIDNEYS AND URETERS: The kidneys are normal in size, shape, and enhance symmetrically. No hydronephrosis. No perinephric stranding. GASTROINTESTINAL TRACT: No bowel obstruction. No ascites or fluid collection. LYMPH NODES: Enlarged gastrohepatic ligament lymph nodes. Subcentimeter mesenteric and retroperitoneal lymph nodes. VASCULAR: Normal caliber abdominal aorta. MR/MR abdomen wo/w con IMPRESSION: Hepatic cirrhosis. 1.1 cm posterior right hepatic T2 hyperintense lesion. The appearance is stable relative to 10/12/2022. Postcontrast assessment is limited due to motion degradation though there is no arterial phase hyperenhancement. Possible mild enhancement is questioned based on GREGORIA calculations. Continued imaging surveillance is advised. Splenomegaly.
[2023-07-12] MEDS: gadobutroL 7.5 ML VIAL IVPUSH (12:22)
== END 2023-07-12 11:12 | disposition home or self-care (01) ==
LOC: HO.MRI 11:11
PROVIDERS: PCP Internal Medicine; Visit Provider Internal Medicine
DX: K76.9 Liver disease, unspecified (principal)
CPT/HCPCS: 74183; A9585

== ENCOUNTER 2023-09-04 16:48 | Emergency (ER) | payer OTHER, SELFPAY ==
--- NOTE | ~2023-09-04 | XR_ITS ---
EXAMINATION: XR CHEST CLINICAL INFORMATION: Overdose, tachypnea, R/O pneumonia, pneumothorax COMPARISON: None available. TECHNIQUE: AP view of the chest was obtained. FINDINGS: The lungs are adequately expanded. No focal consolidation, pleural effusion, pulmonary edema or pneumothorax. The cardiomediastinal silhouette is within normal limits for technique. No acute osseous abnormality XR/XR chest 1V IMPRESSION: No acute pulmonary disease.
[2023-09-04 16:54] VITALS: BP 148/95; PULSE 44; RESP 12; TEMP 36.3; O2SAT 99; BMI 21.0
--- NOTE | 2023-09-04 16:55 | ED.OVERDOSE ---
HPI - Overdose General Chief Complaint: Overdose Stated Complaint: overdose, 8mg narcan in, still unresponsive Source: family and EMS Mode of arrival: EMS Limitations: altered mental status History of Present Illness ED Provider: Dr. Gera Phillips HPI Narrative: 42-year-old male with a history of hepatic cirrhosis, esophageal varices, upper GI bleed, hepatitis-C, opiate use disorder who presents emergency department for evaluation of heroin overdose. Patient was found unresponsive by his mother who called 911. Paramedics state that they found 15 bags empty bags heroin near the patient. He was initially given intranasal Narcan 8 mg by 1st responders with improvement of his respiratory status. He was then given Narcan 0.5 mg IV x2 by the paramedics. Paramedics states the patient did respond to the Narcan, he is awake but still somnolent, has a rapid respiratory rate 25 breaths per minute, O2 saturation was 100% on 4 L via nasal cannula, heart rate was 50 in his point of care glucose was 91. On presentation to the emergency department the patient is awake but somnolent, with painful stimuli he does wake up, he was able to tell us that his name is Bhupinder but then fell back asleep. I did obtain information from the patient's mother who has here in the emergency department with the patient. She states that she got home from work at 15:30 hours and found him unresponsive in the bathroom. She was unable to get the door open so she called 911. She states that the patient is in a methadone clinic but he has been having severe back pain and that is why she believes he has been using opiates. Related Data Home Medications ?Medication ?Instructions ?Recorded ?Confirmed cholecalciferol (vitamin D3) 10 10 mcg PO DAILY 12/11/20 02/24/23 mcg (400 unit) capsule (Vitamin D3) clonazepam 1 mg tablet 1 mg PO BID 12/11/20 02/24/23 clonidine HCl 0.2 mg tablet 0.2 mg PO BEDTIME 12/11/20 09/08/22 lactulose 10 gram oral packet 10 g PO DAILY 12/11/20 02/24/23 levothyroxine 100 mcg tablet 100 mcg PO DAILY 12/11/20 02/24/23 methadone 10 mg/mL injection 58 mg IM DAILY 12/11/20 02/24/23 solution nadolol 20 mg tablet 20 mg PO DAILY 12/11/20 02/24/23 omeprazole 20 mg delayed 20 mg PO DAILY 12/11/20 09/08/22 release,disintegrating tablet fluoxetine 20 mg capsule 40 mg PO QAM 09/08/22 02/24/23 ferrous sulfate 325 mg (65 mg 325 mg PO DAILY 02/24/23 02/24/23 iron) tablet furosemide 20 mg tablet 20 mg PO DAILY 02/24/23 02/24/23 potassium chloride 20 mEq oral 20 meq PO DAILY 02/24/23 02/24/23 packet Previous Rx's ?Medication ?Instructions ?Recorded amoxicillin 500 mg capsule 1,000 mg (2 x 500 mg) PO Q12H 10 09/08/22 days #40 caps morphine 15 mg immediate release 15 mg PO Q4-6H PRN pain #10 tabs 09/08/22 tablet Allergies Allergy/AdvReac Type Severity Reaction Status Date / Time No Known Allergies Allergy Verified 09/04/23 16:59 Review of Systems Review of Systems: Yes Unobtainable due to mental status [facility] Past Medical History [facility] Narrative: Social history: He does live at home with his mother who did find him unresponsive in the bathroom. Medical History Chronic hepatitis Hypothyroid Upper GI bleed Hepatitis Esophageal varices Cirrhosis Surgical History H/O colonoscopy Hx of knee surgery Hx of hand surgery History of esophagogastroduodenoscopy (EGD) Social History Social History Patient Tobacco Use Status: Former Tobacco user Tobacco use type: Cigarette Advance Directives: No Advance Directives Information Provided: No Do you have a plan to hurt others: No Plan Physical Exam Vital Signs: Vital Signs: Last Vital Signs Temp 96.3 F L 09/04/23 18:46 Pulse 47 L 09/04/23 18:46 Resp 14 09/04/23 18:46 BP 137/68 09/04/23 18:46 Pulse Ox 100 09/04/23 18:46 O2 Del Method Nasal Cannula wit h Capnography 09/04/23 18:46 O2 Flow Rate 2 09/04/23 18:46 Oxygen Flow Rate 2 09/04/23 16:54 BMI result Body Mass Index 21.0 Vital signs were normal Exam: General: Patient is awake but somnolent and falls back asleep if not stimulated Head: Normocephalic, atraumatic EENT: PERRL, Lids normal, sclera normal, conjunctiva normal, nose normal , ears normal, throat without erythema or exudates Neck: Supple, no adenopathy Lung: breath sounds symmetric, no wheezing, rales or rhonchi Chest: symmetric movement, nontender Heart: regular rate and rhythm, normal S1, S2 no murmurs or rubs Abdomen: soft, non-tender, nondistended, normal bowel sounds Back: no vertebral tenderness, no CVAT Extremities: no deformities, moves all extremities symmetrically, abrasion to the left posterior shoulder/scapula Neuro: Awake but falls asleep if non stimulant, oriented to person, speech is comprehensible but slurred, cranial nerves intact, moves all extremities symmetrically Medications Administered Discontinued Medications Generic Name Dose Route Start Last Admin Trade Name Freq PRN Reason Stop Dose Admin Sodium Chloride 1,000 mls @ 999 mls/hr 09/04/23 16:55 09/04/23 18:20 Ns IV 09/04/23 17:55 Infused .Q1H1M STA Infusion Naloxone HCl 1 mg 09/04/23 16:55 09/04/23 17:22 Naloxone Hcl 2 Mg/2 Ml Syringe IVPUSH 09/04/23 16:56 1 mg ONCE ONE Administration Medical Decision Making Medical Decision Making MDM Narrative: 42-year-old male with a history of hepatic cirrhosis, esophageal varices, upper GI bleed, hepatitis-C, opiate use disorder who presents emergency department for evaluation of heroin overdose. Patient was found unresponsive by his mother who called 911. Paramedics state that they found 15 bags empty bags heroin near the patient. Patient was given intranasal Narcan 8 mg and IV Narcan 0.5 mg x 2 with partial reversal of his narcosis. In the emergency department the patient was awake but somnolent and would fall back asleep if not stimulated. Patient was given another dose of Narcan 1 mg IV and he became more responsive. Differential diagnosis: ?Includes but is not limited to opiate overdose, fentanyl overdose, polysubstance overdose, alcohol intoxication electrolyte abnormalities, anemia Following evaluation was ordered: CBC, CMP, CK, lipase, magnesium, troponin, PTT, ethanol level, drug screen urine, chest x-ray one view, 12 EKG Patient was initially treated with the following: Narcan 1 mg IV Course: 19:49 My interpretation patient's laboratory evaluation is as follows: WBC low 2400, platelet count low 3800, these are chronic and consistent with his cirrhosis. PTT elevated 42.4. Troponin below detectable limits. AST elevated 45. Urine drug screen was positive for opiates, fentanyl and THC. The patient is awake and alert and able to answer questions. He was able to drink fluid and eat crackers. Patient was able to ambulate without any difficulty. The patient was discharged home in the care of his mother. Patient was advised to follow up with his methadone clinic to discuss possibly increasing his methadone to help reduce use of injection narcotics Admission/Observation Consideration of admission/observation: Escalation of care including admission/observation considered Lab Data MDM Lab Attestation statement: I reviewed the patient's lab results. 09/04/23 17:14 09/04/23 17:14 Labs: Lab Results 09/04/23 09/04/23 09/04/23 Range/Units 17:14 17:41 17:57 WBC 2.4 L (4.8-10.8) X10*3/uL RBC 4.02 L (4.60-5.80) X10*6/uL Hgb 12.7 L (14.0-18.0) g/dl Hct 37.0 L (42.0-52.0) % MCV 92.0 (80.0-98.0) fL MCH 31.6 (27.0-33.0) pg MCHC 34.3 (31.0-36.0) g/dl RDW 13.7 (11.0-16.0) % Plt Count 38 L D (160-400) X10*3/uL MPV 12.0 (9.4-12.4) fL Immature Gran % (Auto) 0.4 (0.0-0.4) % Neut % (Auto) 55.4 (45-73) % Lymph % (Auto) 28.5 (20-40) % [place] % (Auto) 12.0 H (2-11) % Eos % (Auto) 2.9 (0-4) % Baso % (Auto) 0.8 (0-2) % Lymph # (Auto) 0.7 L (1.2-4.9) X10*3/uL [place] # (Auto) 0.3 (0.1-1.2) X10*3/uL Eos # (Auto) 0.1 (0.0-0.4) X10*3/uL Baso # (Auto) 0.0 (0.0-0.2) X10*3/uL Abs Immat Gran (auto) 0.01 (0.00-0.03) X10*3/uL Absolute Neuts (auto) 1.3 L (2.0-8.3) x10*3/uL Absolute Nucleated RBC 0.000 (0.0-0.012) X10*3/uL Nucleated RBC % (auto) 0.0 (0.0-0.2) /100WBC Smear Tech's Comments VERIFIED APTT 42.4 H (26.0-36.8) SEC Sodium 138 (135-145) mmol/L Potassium 5.1 (3.3-5.1) mmol/L Chloride 105 (96-108) mmol/L Carbon Dioxide 25 (22-29) mmol/L Anion Gap 13 (12-20) BUN 11 (9-16) mg/dL Creatinine 0.86 (0.5-1.4) mg/dL Estim Creat Clear Calc 104.3 Estimated GFR > 60 Random Glucose 83 (60-115) mg/dL Calcium 8.7 (8.4-10.2) mg/dL Magnesium 2.2 (1.6-2.6) mg/dL Total Bilirubin 0.8 (0.0-1.0) mg/dL AST 45 H (5-37) U/L ALT 21 (0-40) U/L Alkaline Phosphatase 97 (39-117) U/L Total Creatine Kinase 182 H (38-174) U/L Troponin I High Sens < 2.7 (<3.5-35.0) ng/L Total Protein 7.1 (6.5-8.0) g/dL Albumin 3.9 (3.5-5.0) g/dL Lipase 27 (8-78) U/L Urine Opiates Screen POSITIVE H (Not Detect) Ur Buprenorphine Scrn Not Detected (Not Detect) ng/mL Ur Oxycodone Screen Not Detected (Not Detect) ng/mL Urine Methadone Screen Not Detected (Not Detect) ng/mL Urine Fentanyl Screen POSITIVE H (Not Detect) Ur Barbiturates Screen Not Detected (Not Detect) Ur Phencyclidine Scrn Not Detected (Not Detect) Ur Amphetamines Screen Not Detected (Not Detect) U Benzodiazepines Scrn Not Detected (Not Detect) Urine Cocaine Screen Not Detected (Not Detect) U Marijuana (THC) Screen POSITIVE H (Not Detect) Ethyl Alcohol < 10 mg/dL Independent Interpretation I performed an independent interpretation of an: EKG Interpretation: My interpretation patient's 12 EKG done at 16:58 hours is as follows: Sinus bradycardia with a rate of 44, normal IN interval, QRS duration QTC interval, no ST segment elevation, no ST segment depression, no T-wave abnormalities, no PACs, no PVCs except for the bradycardia this is a normal EKG Discharge Plan Discharge Clinical Impression: Opiate use, Fentanyl use disorder, severe Drug overdose Qualifiers: Encounter type: initial encounter Injury intent: accidental or unintentional Qualified Code(s): T50.901A - Poisoning by unspecified drugs, medicaments and biological substances, accidental (unintentional), initial encounter Patient Disposition: Home, Self-Care Additional Instructions: Your blood work was consistent with your cirrhosis and unchanged from your previous blood tests Your urine tox screen was positive for opiates (most likely heroin) , fentanyl and marijuana. You should talk to your methadone clinic to see if you need an increased dose of methadone to help prevent you from using street drugs/narcotics. Continue taking medications as prescribed by your providers Follow-up with your doctor in 2 days. Please return to the emergency department if your symptoms get worse or if you develop any symptoms that are concerning to you. Prescriptions: No Action methadone 10 mg/mL Solution 58 mg IM DAILY clonazepam 1 mg Tablet 1 mg PO BID levothyroxine 100 mcg Tablet 100 mcg PO DAILY nadolol 20 mg Tablet 20 mg PO DAILY clonidine HCl 0.2 mg Tablet 0.2 mg PO BEDTIME lactulose 10 gram Packet 10 g PO DAILY cholecalciferol (vitamin D3) [Vitamin D3] 10 mcg (400 unit) Capsule 10 mcg PO DAILY omeprazole 20 mg Tablet,Disintegrat, Delay Rel 20 mg PO DAILY fluoxetine 20 mg capsule 40 mg PO QAM amoxicillin 500 mg capsule 1,000 mg PO Q12H 10 Days Qty: 40 0RF morphine 15 mg tablet 15 mg PO Q4-6H PRN (Reason: pain) Qty: 10 0RF Rx Instructions: The patient may ask for partial fill; Partial Fill upon patient request. potassium chloride [K-Nessa] 20 mEq Packet 20 meq PO DAILY ferrous sulfate 325 mg (65 mg iron) Tablet 325 mg PO DAILY furosemide 20 mg tablet 20 mg PO DAILY Print Language: Tamazight
--- NOTE | 2023-09-04 16:56 | ECG_ITS ---
Test Reason : OVER DOSE Blood Pressure : / mmHG Vent. Rate : 044 BPM Atrial Rate : 044 BPM P-R Int : 180 ms QRS Dur : 084 ms QT Int : 478 ms P-R-T Axes : 053 000 034 degrees QTc Int : 408 ms Marked sinus bradycardia Abnormal ECG When compared with ECG of 26-OCT-2002 15:46, Vent. rate has decreased BY 30 BPM Referred By: Gera Phillips Electronically Signed By:Feng López
[2023-09-04] MEDS: 0.9 % Sodium Chloride 1,000 ML 999 ML IV (17:16)
[2023-09-04] MEDS: Naloxone HCl 2 MG/2 ML SYRINGE 1 MG IVPUSH (17:22)
--- NOTE | 2023-09-04 17:22 | MHC.EDTECH ---
Patients items are in [facility].
[2023-09-04 17:34] LABS: Basophils Percent Auto 0.8 % (0-2); Eosinophils Absolute Auto 0.1 X10*3/uL (0.0-0.4); Eosinophils Percent Auto 2.9 % (0-4); Hemoglobin 12.7 g/dl (14.0-18.0); Imm Gran Abs Auto 0.01 X10*3/uL (0.00-0.03); Imm Gran Pct Auto 0.4 % (0.0-0.4); Lymphocytes Absolute Auto 0.7 X10*3/uL (1.2-4.9); Lymphocytes Percent Auto 28.5 % (20-40); MANUAL DIFF FLAG SCAN; Mean Corpuscular HGB Conc 34.3 g/dl (31.0-36.0); Mean Corpuscular Hemoglobin 31.6 pg (27.0-33.0); Monocytes Absolute Auto 0.3 X10*3/uL (0.1-1.2); Neutrophils Absolute Auto 1.3 x10*3/uL (2.0-8.3); Neutrophils Percent Auto 55.4 % (45-73); Red Blood Count 4.02 X10*6/uL (4.60-5.80); Red Cell Distribution Width 13.7 % (11.0-16.0); SCAN SMEAR FLAG 1
[2023-09-04 17:35] LABS: Platelet Count 38 X10*3/uL (160-400); White Blood Count 2.4 X10*3/uL (4.8-10.8)
--- NOTE | 2023-09-04 17:39 | PC.NURSE ---
belongings placed in [facility]. placed on alarm security or surveillance monitor w/ pacer pads in place d/t decreased heart rate. patient arousable to verbal/painful stimuli. hematoma noted to left shoulder w/ abrasions. IV established by EMS prior to arrival, fluids infusing and medicated per the MAR.
[2023-09-04 17:42] LABS: SLIDE REVIEW VERIFIED
[2023-09-04 17:48] LABS: Ethanol < 10 mg/dL
[2023-09-04 17:50] LABS: Alanine Aminotransferase 21 U/L (0-40); Albumin Level 3.9 g/dL (3.5-5.0); Alkaline Phosphatase 97 U/L (39-117); Anion Gap 13 (12-20); Aspartate Amino Transferase 45 U/L (5-37); Bilirubin Total 0.8 mg/dL (0.0-1.0); Blood Urea Nitrogen 11 mg/dL (9-16); Calcium 8.7 mg/dL (8.4-10.2); Carbon Dioxide 25 mmol/L (22-29); Chloride 105 mmol/L (96-108); Creatinine Clr Calc Pharmacy 104.3; Estimated Glomerular Filt Rate > 60; Glucose Random 83 mg/dL (60-115); Lipase 27 U/L (8-78); Magnesium 2.2 mg/dL (1.6-2.6); Potassium 5.1 mmol/L (3.3-5.1); Sodium 138 mmol/L (135-145); Total Protein 7.1 g/dL (6.5-8.0)
[2023-09-04 17:52] VITALS: BP 140/80; PULSE 50; O2SAT 100
[2023-09-04 17:54] LABS: Troponin-I High Sensitivity < 2.7 ng/L (<3.5-35.0)
--- NOTE | 2023-09-04 18:01 | PC.NURSE ---
straight cath done to obtain urine sample. approx 150mL urine output.
[2023-09-04 18:08] LABS: Partial Thromboplastin Time 42.4 SEC (26.0-36.8)
[2023-09-04 18:30] LABS: Amphetamine Screen Urine Not Detected (Not Detect); Barbiturates, Urine Not Detected (Not Detect); Benzodiazepines Screen Urine Not Detected (Not Detect); Buprenorphine Scr Not Detected (Not Detect); Cannabinoid Screen Urine POSITIVE (Not Detect); Cocaine Screen Urine Not Detected (Not Detect); Fentanyl, urine POSITIVE (Not Detect); Methadone Screen, Urine Not Detected (Not Detect); Opiate Screen Urine POSITIVE (Not Detect); Oxycodone Screen Urine Not Detected (Not Detect); Phencyclidine Screen Urine Not Detected (Not Detect)
[2023-09-04 18:46] VITALS: BP 137/68; PULSE 47; RESP 14; TEMP 35.7; O2SAT 100
--- NOTE | 2023-09-04 18:59 | PC.NURSE ---
this rn assumed care of pt, pt resting in stretcher, arousable to name at this time. pt denies pain at this time. pt sinus fletcher on tele 46-50bpm.
--- NOTE | 2023-09-04 19:45 | PC.NURSE ---
mother at bedside reporting pt was found in the bathroom at home with the bathroom door shut. pt was unresponsive, mother reports pt has done this before. at this time pt a&ox4, sitting up in stretcher eating and drinking. pt denies si/hi.
--- NOTE | 2023-09-04 19:56 | PC.NURSE ---
this rn assisted pt with ambulation, pt ambulatory with steady gait.
[2023-09-04 20:03] VITALS: PULSE 58; RESP 17; TEMP 37; O2SAT 100
[2023-09-04 20:04] VITALS: BP 137/68; PULSE 58; RESP 17; TEMP 37; O2SAT 100
== END 2023-09-04 20:05 | disposition home or self-care (01) ==
PROVIDERS: Emergency Provider Emergency Medicine Emergency Medical Services
DX: T40.2X1A Poisoning by other opioids, accidental (unintentional), initial encounter (principal); F11.90 Opioid use, unspecified, uncomplicated; F19.90 Other psychoactive substance use, unspecified, uncomplicated; Y92.9 Unspecified place or not applicable; R40.4 Transient alteration of awareness
CPT/HCPCS: 36415; 71045; 80053; 80307; 82550; 83690; 83735; 84484; 85025; 85730; 93005; 96361; 96374; 99285; J2310

== ENCOUNTER → 2023-09-04 16:56 | Outpatient (BNV) | payer OTHER, SELFPAY | PROVIDERS: Emergency Provider Emergency Medicine Emergency Medical Services; Visit Provider Internal Medicine Cardiovascular Disease | DX: R00.1 Bradycardia, unspecified (principal); R94.31 Abnormal electrocardiogram [ECG] [EKG] | CPT/HCPCS: 93010 ==

== ENCOUNTER 2023-12-22 10:22 | Outpatient (REF) | payer OTHER, SELFPAY ==
[2023-12-22 10:43] LABS: MANUAL DIFF FLAG NO
[2023-12-22 11:00] LABS: Basophils Percent Auto 0.6 % (0-2); Eosinophils Absolute Auto 0.1 X10*3/uL (0.0-0.4); Eosinophils Percent Auto 4.2 % (0-4); Hematocrit 38.1 % (42.0-52.0); Hemoglobin 13.3 g/dl (14.0-18.0); Imm Gran Abs Auto 0.01 X10*3/uL (0.00-0.03); Imm Gran Pct Auto 0.3 % (0.0-0.4); Lymphocytes Absolute Auto 0.8 X10*3/uL (1.2-4.9); Lymphocytes Percent Auto 25.2 % (20-40); Mean Corpuscular HGB Conc 34.9 g/dl (31.0-36.0); Mean Corpuscular Hemoglobin 31.1 pg (27.0-33.0); Mean Corpuscular Volume 89.2 fL (80.0-98.0); Mean Platelet Volume 11.1 fL (9.4-12.4); Monocytes Absolute Auto 0.3 X10*3/uL (0.1-1.2); Monocytes Percent Auto 10.3 % (2-11); Neutrophils Percent Auto 59.4 % (45-73); Platelet Count 49 X10*3/uL (160-400); Red Blood Count 4.27 X10*6/uL (4.60-5.80); Red Cell Distribution Width 12.9 % (11.0-16.0); White Blood Count 3.3 X10*3/uL (4.8-10.8)
[2023-12-22 11:03] LABS: INTERNATIONAL NORM RATIO 1.1 (0.9-1.1); Prothrombin Time 12.8 SEC (10.9-12.4)
[2023-12-22 11:46] LABS: Alanine Aminotransferase 29 U/L (0-40); Albumin Level 4.2 g/dL (3.5-5.0); Alkaline Phosphatase 98 U/L (39-117); Anion Gap 9 (12-20); Aspartate Amino Transferase 50 U/L (5-37); Blood Urea Nitrogen 10 mg/dL (9-16); Calcium 9.3 mg/dL (8.4-10.2); Carbon Dioxide 30 mmol/L (22-29); Chloride 105 mmol/L (96-108); Estimated Glomerular Filt Rate > 60; Glucose Random 88 mg/dL (60-115); Potassium 4.3 mmol/L (3.3-5.1); Sodium 140 mmol/L (135-145)
[2023-12-23 12:52] LABS: Alpha Fetoprotein 2.4 ng/mL (<6.1)
== END 2023-12-22 10:23 | disposition home or self-care (01) ==
LOC: HO.LAB 10:22
PROVIDERS: PCP Internal Medicine; Visit Provider Internal Medicine
DX: B18.2 Chronic viral hepatitis C (principal); K74.60 Unspecified cirrhosis of liver
CPT/HCPCS: 36415; 80053; 82105; 85025; 85610